=== PATIENT | male | born 1945 | race Caucasian/White ===

== ENCOUNTER 2023-12-18 03:56 | Day surgery (SDC) | payer OTHER ==
[2023-12-18 07:42] VITALS: RESP 16; BMI 24.3
[2023-12-18 08:50] VITALS: TEMP 98.3
[2023-12-18 09:31] VITALS: BP 108/59; PULSE 55
== END 2023-12-18 10:00 | disposition home or self-care (01) ==
LOC: JASU-ENDO 03:56
PROVIDERS: ATTEND Internal Medicine Gastroenterology
PROC: 0DBL8ZX Excision of Transverse Colon, Via Natural or Artificial Opening Endoscopic, Diagnostic (ICD-10-PCS; 2023-12-18)
PROC: 0DBN8ZX Excision of Sigmoid Colon, Via Natural or Artificial Opening Endoscopic, Diagnostic (ICD-10-PCS; principal; 2023-12-18 08:00)
DX: Z12.11 Encounter for screening for malignant neoplasm of colon (principal); D12.5 Benign neoplasm of sigmoid colon; K63.89 Other specified diseases of intestine
CPT/HCPCS: 88305-TC